=== PATIENT | male | born 1975 ===

== ENCOUNTER 2021-02-25 16:29 | Emergency (ER) | payer SELFPAY ==
[~2021-02-25] VITALS: Ht 185.4 cm; Wt 77.1 kg
[2021-02-25 16:31] VITALS: BP 119/80
== END 2021-02-25 20:01 | disposition home or self-care (01) ==
LOC: ER 16:29
DX: R09.1 Pleurisy (principal); Z53.21 Procedure and treatment not carried out due to patient leaving prior to being seen by health care provider
CPT/HCPCS: 71046